=== PATIENT | male | born 1985 | race African-American/Black ===

== ENCOUNTER 2017-04-01 22:05 | Emergency (ER) | payer MEDICAID, OTHER ==
[~2017-04-01] VITALS: Ht 165.1 cm; Wt 62.1 kg
[2017-04-01 22:42] LABS: Basophils # (auto) 0 uL; Basophils % (auto) 0.4 % (0.0-2.0); CONDITION Y; Eosinophils # (auto) 0.1 uL; Eosinophils % (auto) 2.2 % (0.0-7.0); Hematocrit 42.1 % (41.0-53.0); Hemoglobin 14.5 g/dL (13.5-17.5); Lymphocytes # (auto) 0.9 uL; Lymphocytes % (auto) 18.6 % (10.0-50.0); Mean Corpuscular Hemoglobin 31.9 pg (28.0-32.0); Mean Corpuscular Hgb Conc. 34.5 g/dL (32.0-36.0); Mean Corpuscular Volume 92.4 fL (80.0-100.0); Mean Platelet Volume 8.4 fL (7.4-10.4); Monocytes # (auto) 0.6 uL; Monocytes % (auto) 12.9 % (0.0-12.0); Neutrophils # (auto) 3.1 uL; Neutrophils % (auto) 65.9 % (37.0-80.0); Platelet Count (auto) 297 10^3/uL (140-450); Red Cell Distribution Width 13.2 % (11.6-16.0); White Blood Cell 4.7 10^3/uL (4.4-10.8)
[2017-04-01] MEDS ORDERED: SODIUM CHLORIDE 0.9% 1,000 ML IV ONE (23:00)
[2017-04-01 23:08] LABS: Acetaminophen < 2.0 ug/mL (10-30); Albumin 3.5 g/dL (3.4-5.0); BUN/Creatinine Ratio 19.8; Calcium 8.6 mg/dL (8.5-10.1); Potassium 3.5 mmol/L (3.5-5.1); Salicylate < 1.7 mg/dL (2.8-20.0)
[2017-04-01 23:11] LABS: Bilirubin, Total 0.4 mg/dL (0.2-1.0)
[2017-04-02 06:16] LABS: Urine RBC None Seen /hpf (0 - 3)
[2017-04-02 06:51] LABS: Urine Bilirubin Negative (Negative); Urine Blood Negative /uL (Negative); Urine Color Yellow (Yellow); Urine Glucose Normal (Normal); Urine Ketone Negative (Negative); Urine Mucus FEW (None Seen); Urine Nitrite Negative (Negative); Urine Urobilinogen Normal (Negative)
[2017-04-02 13:24] VITALS: BP 92/53
== END 2017-04-02 14:14 | disposition home or self-care (01) ==
LOC: ER 22:07
DX: F23 Brief psychotic disorder (principal); F20.9 Schizophrenia, unspecified; F31.9 Bipolar disorder, unspecified
CPT/HCPCS: 36415; 80053; 80307; 80320; 80329; 81001; 82962; 83735; 85025; 93005; 94761; 96360; 99285; J7030